=== PATIENT | female | born 1970 | race Two or more races ===

== ENCOUNTER 2016-11-24 20:24 | Emergency (ER) | payer OTHER ==
[~2016-11-24] VITALS: Ht 167.6 cm; Wt 68.0 kg
--- NOTE | 2016-11-24 20:30 | NUR ---
TO BED 21 A 46 YO FEMALE BIBSELF AND REPORTED TO HAVE "NOTICED SOME FRESH BLOOD X2 WHEN I WIPED ABOUT 7:30PM TODAY." PER PATIENT, SHE IS 7 WEEKS , (FIRST ) WITH CARE. REPORTED TO HAVE MILD ABDOMINAL CRAMPING. VSS. NONDIAPHORETIC. NO S/S OF ACUTE DISTRESS. GOWNED. INTIATED COMFORT MEASURES. AWAITING FOR ER MD CONKLIN.
--- NOTE | 2016-11-24 20:36 | NUR ---
URINE COLLECTED. CALLED LAB FOR PROFESSOR OF LEGAL STUDIES.
--- NOTE | 2016-11-24 20:52 | NUR ---
DINKEY ENGINEER AT BEDSIDE
--- NOTE | 2016-11-24 21:11 | NUR ---
REFUSED IV . EXPLAINED RISKS AND BENEFITS PT VERBALIZED UNDERSTANDING. MADE AWARE
[2016-11-24 21:33] LABS: APPEARANCE,URINE Slightly Cloudy (CLEAR); BILIRUBIN,URINE Negative (NEGATIVE); BLOOD, URINE Moderate Ery/uL (NEGATIVE); COLOR,URINE Yellow (YELLOW); KETONES,URINE Negative (NEGATIVE); LEUKOCYTE ESTERASE ,URINE Negative (NEGATIVE); NITRITE, URINE Negative (NEGATIVE); PH,URINE 5.5 (5.0-8.0); PROTEIN,URINE Negative (NEGATIVE); UGLUCOSE Negative (NEGATIVE); UROBILINOGEN,URINE 0.2 EU/dL (0.2)
[2016-11-24 21:44] LABS: BACTERIA,URINE Few /HPF (None Seen); MUCUS,URINE Few /LPF (None Seen); SQUAMOUS EPITHELIAL CELL,UR Few /HPF (None Seen); WBC,URINE 0-2 /HPF (0-3)
--- NOTE | 2016-11-24 21:50 | NUR ---
Dr Quevedo at bedside for discharge instructions. Patient and verbalized understanding of instructions.
[2016-11-24 22:00] VITALS: BP 128/76
== END 2016-11-24 22:00 | disposition home or self-care (01) ==
LOC: ER 20:28
DX: O26.851 Spotting complicating pregnancy, first trimester (principal); Z3A.01 Less than 8 weeks gestation of pregnancy
CPT/HCPCS: 36415; 76805-TC; 81000-TC; A4606; Z7610